=== PATIENT | female | born 1940 | race Caucasian/White ===

== ENCOUNTER 2016-07-21 10:23 | Emergency (ER) | payer MEDICARE, BC ==
[2016-07-21] MEDS ORDERED: Ondansetron 4 MG/2 ML SDV IVPUSH ONE (10:47)
[2016-07-21] MEDS ORDERED: Sodium Chloride 0.9% 10 ML Syringe FLUSH PRN (10:56)
[2016-07-21] MEDS: Sodium Chloride 0.9% 10 ML Syringe FLUSH PRN ×2 (11:02→12:04)
--- NOTE | 2016-07-21 11:16 | EDM.PDOC ---
ED HPI ALTERED MENTAL STATUS - General Time Seen by Provider: 07/21/16 10:25 Source: Reports: Family History Limitations: Reports: Altered mental status - History of Present Illness INITIAL COMMENTS - FREE TEXT/NARRATIVE: c/o unresponsive pt saw her son play basketball last night, returned home with , watched basketball on TV, went to bed at 11 PM, pt called up stairs to report game results and came to bed later at ~0730 pt asked if he wanted to go to [employer], he agreed, she got dressed in [employer] clothes and went downstairs. said he was going to take a shower, at ~9 AM had finished his shower and was shaving when he heard a noise. Pt had fallen to floor, EMS call went out at 9:34 AM per son, arrived here in ED at 10:23 AM. BS wnl per EMS, vss stable here, pt minimally responsive - Related Data Allergies/ADRs: Allergies No Known Allergies Allergy (Verified 07/21/16 10:41) Home Meds: Home Meds . [Unable to Verify Home Med List] 07/21/16 [History] ED ROS GENERAL - Review of Systems Review Of Systems: See Below Constitutional: Reports: no symptoms HEENT: Reports: No symptoms Respiratory: Reports: no symptoms Cardiovascular: Reports: No symptoms Endocrine: Reports: no symptoms GI/Abdominal: Reports: No symptoms : Reports: no symptoms Musculoskeletal: Reports: no symptoms Skin: Reports: no symptoms Neurological: Reports: other ( reports no antecedent sxs, pt not speaking now at home in kitchen or here in ED) Psychiatric: Reports: No symptoms Hematologic/Lymphatic: Reports: no symptoms Immunologic: Reports: no symptoms - Physical Exam Exam: See Below Exam Limited By: Altered mental status Eye Exam: bilateral eye: other (pupils 4/4 mm, conjugate, opens eyes and looks at speaker, looks to L, not to R) Ears: normal external exam Nose: normal inspection, normal mucosa, no blood Throat/Mouth: Normal inspection, Normal lips, Normal teeth, Normal gums, Normal oropharynx, Normal voice, No airway compromise Head Exam: atraumatic, normocephalic Neck: normal inspection, supple, non-tender, full range of motion Respiratory/Chest: no respiratory distress, lungs clear, normal breath sounds, no accessory muscle use, chest non-tender Cardiovascular: normal peripheral pulses, regular rate, rhythm, no edema, no gallop, no JVD, no rub GI/Abdominal: soft, non tender, no organomegaly, no distention, no abnormal bruit, no mass Neuro Exam (Abbreviated): other (pt with flaccidity on R, no movement on R, does move and reposition RUE and RLL spontaneously, turns and makes eye contact to left, makes sounds in response to questions which are not intelligible, no gaze to R, no carotid bruits, tone on L wnl) Back Exam: normal inspection, full range of motion Extremities: other (spontaneous movement of LUE and LLE, no movement of R side, trace edema to knees b/l) Psychiatric: normal affect, normal mood Skin Exam: Warm, Dry, Intact, Normal color, No rash Course - Orders/Labs/Meds Orders: Active Orders 24 hr Category Date Time Status EKG Documentation Completion [RC] ASDIRECTED Care 07/21/16 10:47 Active Insert Urinary Catheter [OM.PC] Q24H Care 07/21/16 10:45 Ordered Oxygen Therapy Adult [Oxygen Therapy, ED] [RC] Care 07/21/16 10:50 Active ASDIRECTED Urinary Catheter Assessment [RC] QSHIFT Care 07/21/16 10:46 Active Chest 1V Frontal [CR] Stat Exams 07/21/16 10:45 Ordered Head wo Cont [CT] Stat Exams 07/21/16 10:43 Taken Sodium Chloride 0.9% [Saline Flush] Med 07/21/16 10:56 Active 10 ml FLUSH ASDIRECTED PRN Sodium Chloride 0.9% [Saline Flush] Med 07/21/16 10:56 Active 10 ml FLUSH ASDIRECTED PRN Saline Lock Insert [OM.PC] Routine Oth 07/21/16 10:56 Ordered Saline Lock Insert [OM.PC] Routine Oth 07/21/16 10:56 Ordered EKG 12 Lead [EK] Routine Ther 07/21/16 10:46 Ordered Medication Orders Sodium Chloride (Saline Flush) 10 ml FLUSH ASDIRECTED PRN PRN Reason: Keep Vein Open Last Admin: 07/21/16 11:02 Dose: 10 ml Sodium Chloride (Saline Flush) 10 ml FLUSH ASDIRECTED PRN PRN Reason: Keep Vein Open Labs: Laboratory Tests 07/21/16 07/21/16 07/21/16 Range/Units 11:15 11:15 11:15 WBC 9.2 (4.5-12.0) X10-3/uL RBC 4.47 (3.23-5.20) x10(6)uL Hgb 13.4 (11.5-15.5) g/dL Hct 39.3 (30.0-51.3) % MCV 87.9 (80-96) fL MCH 29.9 (27.7-33.6) pg MCHC 34.0 (32.2-35.4) g/dL RDW 12.9 (11.5-15.5) % Plt Count 210 (125-369) X10(3)uL MPV 8.4 (7.4-10.4) fL Neut % (Auto) 65.2 (46-82) % Lymph % (Auto) 25.4 (13-37) % [place] % (Auto) 5.8 (4-12) % Eos % (Auto) 3 (1.0-5.0) % Baso % (Auto) 1 (0-2) % Neut # 6.0 (1.6-8.3) # Lymph # 2.3 (0.6-5.0) # [place] # 0.5 (0.0-1.3) # Eos # 0.3 (0.0-0.8) # Baso # 0.1 (0.0-0.2) # PT 11.8 H (8.7-11.1) INR 1.17 H (0.89-1.13) Sodium 138 (135-145) mmol/L Potassium 4.0 (3.5-5.3) mmol/L Chloride 105 (100-110) mmol/L Carbon Dioxide 27 (23-29) mmol/L BUN 24 H (8-23) mg/dL Creatinine 0.9 (0.6-1.3) mg/dL Est Cr Clr Drug Dosing TNP Estimated GFR (MDRD) > 60 (>60) BUN/Creatinine Ratio 26.7 H (9-20) Glucose 222 H (80-116) mg/dL Calcium 8.6 (8.6-10.2) mg/dL Total Bilirubin 1.2 (0.1-1.3) mg/dL AST 31 H (5-27) IU/L ALT 23 (14-26) IU/L Alkaline Phosphatase 77 (56-112) IU/L Troponin I (0.02-0.06) NG/ML C-Reactive Protein 0.8 (0.0-1.0) mg/dL B-Natriuretic Peptide (0-100) pg/mL Total Protein 7.2 (6.0-8.0) g/dL Albumin 3.8 (3.2-4.6) g/dL Globulin 3.4 g/dL Albumin/Globulin Ratio 1.1 Urine Color (YELLOW) Urine Appearance (CLEAR) Urine pH (5.0-6.5) Ur Specific [place] (1.010-1.025) Urine Protein (NEGATIVE) mg/dL Urine Glucose (UA) (NEGATIVE) mg/dL Urine Ketones (NEGATIVE) mg/dL Urine Occult Blood (NEGATIVE) Urine Nitrite (NEGATIVE) Urine Bilirubin (NEGATIVE) Urine Urobilinogen (NEGATIVE) mg/dL Ur Leukocyte Esterase (NEGATIVE) Urine RBC (0) Urine WBC (0) Ur Squamous Epith Cells (NS,R,O) Amorphous Sediment Urine Bacteria (NS) 07/21/16 07/21/16 07/21/16 Range/Units 11:15 11:15 11:15 WBC (4.5-12.0) X10-3/uL RBC (3.23-5.20) x10(6)uL Hgb (11.5-15.5) g/dL Hct (30.0-51.3) % MCV (80-96) fL MCH (27.7-33.6) pg MCHC (32.2-35.4) g/dL RDW (11.5-15.5) % Plt Count (125-369) X10(3)uL MPV (7.4-10.4) fL Neut % (Auto) (46-82) % Lymph % (Auto) (13-37) % [place] % (Auto) (4-12) % Eos % (Auto) (1.0-5.0) % Baso % (Auto) (0-2) % Neut # (1.6-8.3) # Lymph # (0.6-5.0) # [place] # (0.0-1.3) # Eos # (0.0-0.8) # Baso # (0.0-0.2) # PT (8.7-11.1) INR (0.89-1.13) Sodium (135-145) mmol/L Potassium (3.5-5.3) mmol/L Chloride (100-110) mmol/L Carbon Dioxide (23-29) mmol/L BUN (8-23) mg/dL Creatinine (0.6-1.3) mg/dL Est Cr Clr Drug Dosing Estimated GFR (MDRD) (>60) BUN/Creatinine Ratio (9-20) Glucose (80-116) mg/dL Calcium (8.6-10.2) mg/dL Total Bilirubin (0.1-1.3) mg/dL AST (5-27) IU/L ALT (14-26) IU/L Alkaline Phosphatase (56-112) IU/L Troponin I 0.03 (0.02-0.06) NG/ML C-Reactive Protein (0.0-1.0) mg/dL B-Natriuretic Peptide 179 H (0-100) pg/mL Total Protein (6.0-8.0) g/dL Albumin (3.2-4.6) g/dL Globulin g/dL Albumin/Globulin Ratio Urine Color Yellow (YELLOW) Urine Appearance Clear (CLEAR) Urine pH 5.0 (5.0-6.5) Ur Specific [place] 1.025 (1.010-1.025) Urine Protein Negative (NEGATIVE) mg/dL Urine Glucose (UA) Normal (NEGATIVE) mg/dL Urine Ketones Negative (NEGATIVE) mg/dL Urine Occult Blood Moderate H (NEGATIVE) Urine Nitrite Negative (NEGATIVE) Urine Bilirubin Negative (NEGATIVE) Urine Urobilinogen Normal (NEGATIVE) mg/dL Ur Leukocyte Esterase Negative (NEGATIVE) Urine RBC 5-10 (0) Urine WBC 0-5 (0) Ur Squamous Epith Cells Few H (NS,R,O) Amorphous Sediment Few Urine Bacteria Rare H (NS) Meds: Medications Generic Name Dose Route Start Last Admin Trade Name Freq PRN Reason Stop Dose Admin Sodium Chloride 10 ml 07/21/16 10:56 07/21/16 11:02 Saline Flush FLUSH 10 ml ASDIRECTED PRN Administration Keep Vein Open Sodium Chloride 10 ml 07/21/16 10:56 Saline Flush FLUSH ASDIRECTED PRN Keep Vein Open Discontinued Medications Generic Name Dose Route Start Last Admin Trade Name Supa PRN Reason Stop Dose Admin Alteplase, Recombinant 9 mg 07/21/16 11:31 Activase IVPUSH 07/21/16 11:32 .BOLUS ONE Alteplase, Recombinant 81 mg 07/21/16 11:33 Activase IV 07/21/16 11:34 .INFUSION ONE Ondansetron HCl 4 mg 07/21/16 10:47 07/21/16 11:02 Zofran IVPUSH 07/21/16 10:48 4 mg ONETIME ONE Administration Tenecteplase 50 mg 07/21/16 11:48 Tnkase IV 07/21/16 11:49 NOW STA Protocol - Re-Assessments/Exams Free Text/Narrative Re-Assessment/Exam: 07/21/16 11:20 call from radiologist that head CT, d/w Dr Francois who requested proceeding with TPA and accepted in transfer. Will send by air to expedite arrival, who have been notified and are enroute. Dr Francois plans to activate stroke protocol and obtain a head CTA and possible do IR. 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 No surgery or hospitalization in past year , did have a tooth pulled last week. Pt takes 5 pills a day, thinks she may take an aspirin but does not know. Not on warfarin or other blood thinner per and son. 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, dose tenecteplase 50 mg IV over 5 seconds Departure - Departure Time of Disposition: 11:59 Disposition: DC/Tfer to Acute Hospital 02 Condition: critical Clinical Impression: Acute CVA (cerebrovascular accident), Right hemiplegia Referrals: Dat Hernandez MD [Primary Care Provider] - - My Orders Last 24 Hours: My Active Orders 07/21/16 10:43 Head wo Cont [CT] Stat 07/21/16 10:45 Insert Urinary Catheter [OM.PC] Q24H Chest 1V Frontal [CR] Stat 07/21/16 10:46 Urinary Catheter Assessment [RC] QSHIFT EKG 12 Lead [EK] Routine 07/21/16 10:47 EKG Documentation Completion [RC] ASDIRECTED 07/21/16 10:50 Oxygen Therapy Adult [Oxygen Therapy, ED] [RC] ASDIRECTED 07/21/16 10:56 Sodium Chloride 0.9% [Saline Flush] 10 ml FLUSH ASDIRECTED PRN Sodium Chloride 0.9% [Saline Flush] 10 ml FLUSH ASDIRECTED PRN Saline Lock Insert [OM.PC] Routine Saline Lock Insert [OM.PC] Routine - Assessment/Plan Last 24 Hours: My Active Orders 07/21/16 10:43 Head wo Cont [CT] Stat 07/21/16 10:45 Insert Urinary Catheter [OM.PC] Q24H Chest 1V Frontal [CR] Stat 07/21/16 10:46 Urinary Catheter Assessment [RC] QSHIFT EKG 12 Lead [EK] Routine 07/21/16 10:47 EKG Documentation Completion [RC] ASDIRECTED 07/21/16 10:50 Oxygen Therapy Adult [Oxygen Therapy, ED] [RC] ASDIRECTED 07/21/16 10:56 Sodium Chloride 0.9% [Saline Flush] 10 ml FLUSH ASDIRECTED PRN Sodium Chloride 0.9% [Saline Flush] 10 ml FLUSH ASDIRECTED PRN Saline Lock Insert [OM.PC] Routine Saline Lock Insert [OM.PC] Routine
[2016-07-21] MEDS ORDERED: Tenecteplase 50 MG Kit IV STA (11:48)
[2016-07-21 20:45] VITALS: BP 165/64
== END 2016-07-21 12:20 ==
LOC: FB.ED 10:23
DX: I63.9 Cerebral infarction, unspecified (principal); G81.01 Flaccid hemiplegia affecting right dominant side; S00.01XA Abrasion of scalp, initial encounter; W18.30XA Fall on same level, unspecified, initial encounter
CPT/HCPCS: 36415; 51702; 70450; 80053; 81001; 83880; 84484; 85025; 85610; 86140; 93005; 96374; 96375; 99285; 99291; 99292; J2405; J3101; J7050